=== PATIENT | female | born 1980 | race Two or more races ===

== ENCOUNTER 2018-07-23 22:22 | Emergency (ER) | payer OTHER ==
[2018-07-23 22:51] LABS: PLATELET COUNT 302 10^3/uL (150-400)
--- NOTE | 2018-07-23 22:52 | EDPHY ---
General Time Seen by Provider: 07/23/18 22:39 Narrative: CHIEF COMPLAINT: Back pain, vomiting diarrhea HISTORY OF PRESENT ILLNESS: Patient presents by private vehicle with her family with complaints of back pain , flank pain, vomiting diarrhea symptoms started yesterday evening. First started as a right flank/back pain. Was [id number] time. Over the course of 24 hr become severe, 10 of 10. She could not sleep last night. She associates it with 2 episodes of diarrhea and vomiting. Also mild headache. She has no chest pain but the right-sided pain is worse with inspiration. No cough or fever. No urinary complaints. The pain in the right flank radiates down to the right side the abdomen. She has no trauma or injury. No vaginal discharge. No other associated complaints or modifying factors. No previous incident of this REVIEW OF SYSTEMS: 10 systems were reviewed and negative with the exception of the elements mentioned in the history of present illness. PCP: [facility] SPECIALISTS: None PAST MEDICAL HISTORY: Uncomplicated. PAST SURGICAL HISTORY: No abdominal surgical history. SOCIAL HISTORY: Nonsmoker. Lives independently with her spouse and child. FAMILY HISTORY: Noncontributory EXAMINATION: Vitals: Triage VS reviewed General Appearance: Alert, no distress. Full sentences. Ambulatory. Head: normocephalic, atraumatic Eyes: Pupils equal and round, no conjunctival pallor or injection ENT, Mouth: Mucous membranes moist. Uvula midline. Airway patent. Neck: Normal inspection, supple, non-tender Respiratory: Lungs are clear to auscultation. No wheezing, rhonchi or crackles. Cardiovascular: Regular rate and rhythm. No murmur. Gastrointestinal: Abdomen is soft and nondistended. There is tenderness in the right CVA and right side of the abdomen. No tympany rigidity. No guarding. Bowel sounds are present with no palpable mass. Back: non-tender, no bony abnormalities Neurological: A&O, nonfocal, normal gait Skin: Warm and dry, no rash Extremities: Nontender, no pedal edema Psychiatric: Mood and affect normal DIFFERENTIAL DIAGNOSES: Including but not limited to renal colic, ureteral colic, diverticulitis, colitis MDM: 10:35 p.m. Right-sided flank and abdominal pain with 1 episode of diarrhea earlier today. She has nausea but no vomiting. No fever. No chest pain or shortness of breath. She has no urinary complaints. She has not take any opiates. She has no recent travel. I have ordered laboratory studies and chest x-ray as she does have some right-sided rib pain. Vital signs are within normal limits. 11:30 p.m. Laboratory studies unremarkable with mild microscopic hematuria. I have ordered CT abdomen pelvis for possible renal colic. 12:[address] scan is negative for any acute findings other than right-sided constipation. I have re-evaluated the patient. Her pain is better. We discussed discharge home with [id number] medications to improve her constipation. We discussed magnesium citrate and MiraLax. We discussed strict ED precautions should she have any worsening symptoms. She is to return here if she does not have complete resolution of her symptoms within 24 hr. All this was discussed using the video [employer] television journalist. She is comfortable this plan and like to go home. She is discharged in stable condition SUPERVISION: Patient was independently examined, but I discussed the case with my secondary supervising physician Dr. Becerra CONSULTATION: None - Diagnostics Imaging Results: Imaging Impressions Chest X-Ray 07/23/18 22:57 Impression: No acute pulmonary disease. Abdomen/Pelvis CT 07/23/18 23:29 Impression: 1. No nephrolithiasis or hydronephrosis.\ 2. Constipation. 3. No appendicitis or bowel obstruction. Attention: This CT examination is specifically designed to evaluate patients who are clinically suspected of having acute obstructive uropathy. This examination does not use radiographic contrast, and as such, provides only a limited evaluation of the abdomen, pelvis and retroperitoneum. If there is further clinical suspicion for pathological conditions other than obstructive uropathy, a complete CT evaluation of the abdomen and pelvis utilizing intravenous, oral, and rectal contrast should be considered. Findings and recommendations discussed with Emergency Department physician, Dr. Becerra at 23:54 hour, 07/23/2018. Final report concurs with initial preliminary interpretation. - History Smoking Status: Never smoked - Objective Vital Signs: Initial Vital Signs Temperature (C) 98.6 F 07/23/18 22:27 Heart Rate 80 07/23/18 22:27 Respiratory Rate 16 07/23/18 22:27 Blood Pressure 123/72 H 07/23/18 22:27 O2 Sat (%) 98 07/23/18 22:27 O2 Delivery Mode Room Air Allergies/Adverse Reactions: No Known Allergies Allergy (Unverified 09/14/15 17:19) Home Medications: Medication Instructions Recorded Depo-Provera 09/14/15 Amoxil 07/23/18 Laboratory Results: Laboratory Results 07/23/18 22:40 07/23/18 22:40 07/23/18 07/23/18 07/23/18 23:10 22:40 22:40 WBC RBC Hgb Hct MCV MCH MCHC RDW Plt Count MPV Neut % (Auto) Lymph % (Auto) Otero % (Auto) Eos % (Auto) Baso % (Auto) Nucleat RBC Rel Count Absolute Neuts (auto) Absolute Lymphs (auto) Absolute Monos (auto) Absolute Eos (auto) Absolute Basos (auto) Absolute Nucleated RBC Immature Gran % Immature Gran # Sodium Potassium Chloride Carbon Dioxide Anion Gap BUN Creatinine Estimated GFR Glucose Calcium Total Bilirubin 0.8 mg/dL mg/dL (0.1-1.4) Conjugated Bilirubin 0.2 mg/dL mg/dL (0.0-0.5) Unconjugated Bilirubin 0.6 mg/dL mg/dL (0.0-1.1) AST 19 IU/L IU/L (14-46) ALT 18 IU/L IU/L (9-52) Alkaline Phosphatase 54 IU/L IU/L (38-126) Total Protein 7.0 g/dL g/dL (6.3-8.2) Albumin 4.1 g/dL g/dL (3.5-5.0) Lipase 119 IU/L IU/L (23-300) Beta HCG, Qual NEGATIVE Urine Color PALE YELLOW Urine Appearance CLEAR Urine pH 5.0 (5.0-7.5) Ur Specific [place] 1.013 (1.002-1.030) Urine Protein NEGATIVE (NEGATIVE) Urine Ketones NEGATIVE (NEGATIVE) Urine Blood 1+ H (NEGATIVE) Urine Nitrate NEGATIVE (NEGATIVE) Urine Bilirubin NEGATIVE (NEGATIVE) Urine Urobilinogen NEGATIVE EU EU (0.2-1.0) Ur Leukocyte Esterase NEGATIVE (NEGATIVE) Urine RBC 1-3 /hpf /hpf (0-3) Urine WBC 1-3 /hpf /hpf (0-3) Ur Epithelial Cells TRACE /lpf /lpf (NONE-1+) Urine Mucus TRACE /lpf /lpf (NONE-1+) Urine Glucose NEGATIVE (NEGATIVE) 07/23/18 07/23/18 22:40 22:40 WBC 12.35 10^3/uL H 10^3/uL (3.80-9.50) RBC 4.70 10^6/uL 10^6/uL (4.18-5.33) Hgb 13.5 g/dL g/dL (12.6-16.3) Hct 41.9 % % (38.0-47.0) MCV 89.1 fL fL (81.5-99.8) MCH 28.7 pg pg (27.9-34.1) MCHC 32.2 g/dL L g/dL (32.4-36.7) RDW 12.2 % % (11.5-15.2) Plt Count 302 10^3/uL 10^3/uL (150-400) MPV 9.9 fL fL (8.7-11.7) Neut % (Auto) 64.8 % % (39.3-74.2) Lymph % (Auto) 26.8 % % (15.0-45.0) Otero % (Auto) 6.6 % % (4.5-13.0) Eos % (Auto) 1.2 % % (0.6-7.6) Baso % (Auto) 0.3 % % (0.3-1.7) Nucleat RBC Rel Count 0.0 % % (0.0-0.2) Absolute Neuts (auto) 8.00 10^3/uL H 10^3/uL (1.70-6.50) Absolute Lymphs (auto) 3.31 10^3/uL H 10^3/uL (1.00-3.00) Absolute Monos (auto) 0.81 10^3/uL H 10^3/uL (0.30-0.80) Absolute Eos (auto) 0.15 10^3/uL 10^3/uL (0.03-0.40) Absolute Basos (auto) 0.04 10^3/uL 10^3/uL (0.02-0.10) Absolute Nucleated RBC 0.00 10^3/uL 10^3/uL (0-0.01) Immature Gran % 0.3 % % (0.0-1.1) Immature Gran # 0.04 10^3/uL 10^3/uL (0.00-0.10) Sodium 137 mEq/L mEq/L (135-145) Potassium 4.0 mEq/L mEq/L (3.5-5.2) Chloride 105 mEq/L mEq/L (97-110) Carbon Dioxide 25 mEq/l mEq/l (22-31) Anion Gap 7 mEq/L mEq/L (6-14) BUN 12 mg/dL mg/dL (7-23) Creatinine 0.6 mg/dL mg/dL (0.6-1.0) Estimated GFR > 60 Glucose 93 mg/dL mg/dL (70-100) Calcium 9.1 mg/dL mg/dL (8.5-10.4) Total Bilirubin Conjugated Bilirubin Unconjugated Bilirubin AST ALT Alkaline Phosphatase Total Protein Albumin Lipase Beta HCG, Qual Urine Color Urine Appearance Urine pH Ur Specific [place] Urine Protein Urine Ketones Urine Blood Urine Nitrate Urine Bilirubin Urine Urobilinogen Ur Leukocyte Esterase Urine RBC Urine WBC Ur Epithelial Cells Urine Mucus Urine Glucose Medications Given: Discontinued Medications Sodium Chloride (Ns) 1,000 mls @ 0 mls/hr IV EDNOW ONE; Wide Open PRN Reason: Protocol Stop: 07/23/18 23:04 Last Admin: 07/23/18 23:16 Dose: 1,000 mls Morphine Sulfate (Morphine) 4 mg IVP EDNOW ONE Stop: 07/23/18 23:04 Last Admin: 07/23/18 23:19 Dose: 4 mg Ondansetron HCl (Zofran) 4 mg IVP EDNOW ONE Stop: 07/23/18 23:04 Last Admin: 07/23/18 23:16 Dose: 4 mg Departure - Departure Disposition: Home, Routine, Self-Care Clinical Impression: Constipation Qualifiers: Constipation type: unspecified constipation type Qualified Code(s): K59.00 - Constipation, unspecified Abdominal pain Qualifiers: Abdominal location: unspecified location Qualified Code(s): R10.9 - Unspecified abdominal pain Condition: Good Instructions: Acute Abdominal Pain (ED), Constipation (ED), High Fiber Diet (ED ) Additional Instructions: 1. Magnesium citrate [id number], 1 bottle x1. You may Repeat this if you do not have a bowel movement within 6 hr 2. MiraLax [id number]. One packet once daily. Decreased this if you began having diarrhea 3. Return to emergency department if you do not have complete resolution of her symptoms by tomorrow afternoon. Return sooner for any worsening symptoms, fever , chest pain, shortness of breath Referrals: Physician,Emergency Dept, [Medical Doctor] - As per Instructions [facility],. [Clinic] - As per Instructions
[2018-07-23] MEDS ORDERED: ONDANSETRON 4 MG/2 ML VIAL IVP ONE (23:03)
[2018-07-23] MEDS ORDERED: NS 1,000 ML IV ONE (23:03)
[2018-07-24] MEDS ORDERED: KETOROLAC 30 MG/1 ML SDV IVP ONE (00:45)
[2018-07-24 00:57] VITALS: BP 111/67
== END 2018-07-24 01:30 | disposition home or self-care (01) ==
DX: K59.00 Constipation, unspecified (principal); R10.9 Unspecified abdominal pain; R19.7 Diarrhea, unspecified; R11.10 Vomiting, unspecified
CPT/HCPCS: 96374; J1885; J2270; J2405